=== PATIENT | female | born 2000 | race Caucasian/White ===

== ENCOUNTER 2023-07-16 16:07 | Emergency (ER) | payer MEDICAID, MEDICARE ==
[~2023-07-16] VITALS: Ht 157.5 cm; Wt 56.0 kg
[~2023-07-16 16:07] MED LIST: NAPR-1074 MT
[2023-07-16 16:12] VITALS: BP 97/53; RESP 20; TEMP 98.7; O2SAT 98
[2023-07-16 16:19] VITALS: PULSE 76
[2023-07-16] MEDS ORDERED: ALBUTEROL (0.083%) 2.5MG/3ML NEB HHN STA (16:48)
== END 2023-07-16 22:42 | disposition home or self-care (01) ==
LOC: ER 16:07
DX: R06.02 Shortness of breath (principal)
CPT/HCPCS: 81025; 99282